=== PATIENT | female | born 1985 | race Caucasian/White ===

== ENCOUNTER 2024-12-02 15:44 | Outpatient (REF) | payer OTHER, SELFPAY ==
--- NOTE | ~2024-12-02 | MR_ITS ---
CLINICAL HISTORY: vertigo MR Brain without gadolinium Comparison: None Findings: No restricted diffusion. No intra-axial mass or hemorrhage. No midline shift. No hydrocephalus. Vascular flow voids are intact. Orbital contents are unremarkable. The sinuses and mastoid air cells are clear. No focal bone lesion. IMPRESSION: Unremarkable brain MRI. This document has been electronically signed by: Yonis Wong MD on 12/04/2024 10:20:04
--- OUTSIDE RECORDS SUMMARY | 2024-12-02 15:47 | XMS_ITS | Patient Health Record ---
Author Organization [facility] rocío Address [address] [place] [address] Care Team Providers Care Parking Supervisor Name Role Phone Reva Avila Primary Care Provider Guille Logan Unavailable [phone] Yakelin Barr Unavailable [phone] Wyatt Singh Unavailable [phone] Rajiv Mcfadden Unavailable Manuela Funez Unavailable Hakan Wilhelm Unavailable [phone] Binta, Provider Unavailable Unavailab Emil Fernández Unavailable [phone] Allergies Allergen (clinical drug ingredient) Drug/Non Drug Allergy documented on EMR Reaction Allergy Type Onset Date Status sulfamethoxazole / trimethoprim Bactrim rash Drug Allergy Active minocycline Minocycline rash Drug Allergy Act mireya azithromycin Zithromax rash Drug Allergy Acti ve Suprax rash Drug Allergy Active rizatriptan Maxalt made her feel high as a kite Drug Allergy Active nitrofurantoin Macrodantin profuse vommiting Drug Allergy Active erythromycin Erythromycin rash Drug Allergy A ctive cephalexin Cephalexin rash Drug Allergy Activ e Results Component Value Reference Range Notes Urine Dip --in house Reviewed date:02/20/2024 11:05:41 AM Interpretation: Performing Lab: Notes/Report: Glucose - Bili 1+ Ketone +/- Sp. Gr. 1.025 Blood +/- pH 6.0 Protein 1+ Urobili +/- Nitrite + Leuk 1+ Color/Clarity rené/clear URINE CULTURE (395 [address]) Reviewed date:02/23/2024 07:55:14 AM Interpretation: Performing Lab:NL2, [employer] [facility] [address] [place], [place] [id number] Maurice Mai Notes/Report: Received Date: NON-FASTING CULTURE, URINE, ROUTINE SEE NOTE CULTURE, URINE, ROUTINE Micro Number: [id number] Test Status: Final Specimen Source: Not given Specimen Quality: Adequate Result: Greater than 100,000 CFU/mL of Escherichia coli E.coli INT BRANDON AMOX/CLAVULANATE S 4 AMPICILLIN R >=32 AMP/SULBACTAM I 16 CEFAZOLIN NR <=4 2 CEFEPIME S <=1 CEFTAZIDIME S <=1 CEFTRIAXONE S <=1 CIPROFLOXACIN S <=0.25 GENTAMICIN S <=1 IMIPENEM S <=0.25 LEVOFLOXACIN S <=0.12 NITROFURANTOIN S <=16 PIP/TAZOBACTAM S <=4 TOBRAMYCIN S <=1 TRIMETHOPRIM/SULFA S <=20 S=Susceptible I=Intermediate R=Resistant * = Not Tested NR = Not Reported NN = See Therapy Comments THERAPY COMMENTS Note 1: For infections other than uncomplicated UTI caused by E. coli, K. pneumoniae or P. mirabilis: Cefazolin is resistant if BRANDON > or = 8 mcg/mL. (Distinguishing susceptible versus intermediate for isolates with BRANDON < or = 4 mcg/mL requires additional testing.) Note 2: For uncomplicated UTI caused by E. coli, K. pneumoniae or P. mirabilis: Cefazolin is susceptible if BRANDON <32 mcg/mL and predicts susceptible to the oral agents cefaclor, cefdinir, cefpodoxime, cefprozil, cefuroxime, cephalexin and loracarbef. Urine Dip --in house Reviewed date:03/02/2024 05:26:10 PM Interpretation: Performing Lab: Notes/Report: Glucose - Bili - Ketone 2+ Sp. Gr. 1.025 Blood - pH 6.0 Protein +- Urobili - Nitrite - Leuk - Color/Clarity clear/yellow Rapid Covid 19 Reviewed date:04/09/2024 08:58:19 AM Interpretation:Positive Performing Lab: Notes/Report: Positive ekg (Not yet reviewed by pro vider) Interpretation: Performing Lab: Notes/Report: Heart Rate 97 Systolic Blood Pressure 130 Diastolic Blood Pressure 110 NM Interval 130 QT Interval 362 QTc Interval 426 QRS Duration 96 PWave Roxbury 48 QrsWave Roxbury 26 TWave Roxbury 30 Mean Heart Rate 0 Diastolic Blood Pressure 0 Systolic Blood Pressure 0 MeanRR Interval 0 MinRR Interval 0 MaxRR Interval 0 NumBeats 0 TSH with reflex Reviewed date:04/23/2024 12:46:29 PM Interpretation: Performing Lab: Notes/Report: TSH 1.16 0.27-4.20 uIU/mL COMP MET PANEL Reviewed date:04/23/2024 12:46:07 PM Interpretation: Performing Lab: Notes/Report: SODIUM 137 133-146 mmol/L POTASSIUM 3.9 3.3-5.1 mmol/L CHLORIDE 100 96-108 mmol/L CO2 27 21-35 mmol/L BUN 13 6-19 mg/dL CREATININE 0.80 0.5-1.5 mg/dL GLUCOSE 76 70-99 mg/dL ALBUMIN 4.3 3.9-4.8 g/dL TOTAL PROTEIN 7.7 6.5-8.0 g/dL CALCIUM 9.8 8.4-10.3 mg/dL ALKALINE PHOSPHATASE 117 39-117 U/L TOTAL BILIRUBIN 0.3 0.0-1.2 mg/dL AST 18 0-37 U/L ALT 19 0-40 U/L EGFR 97 >59 mL/min/1.73m2 Estimated glomerular filtration rate calculated using the CKD-EPI refit equation. ANION GAP 14 10-20 mmol/L GLOBULIN 3.4 1-4.8 g/dL Sedimentation rate (ESR) Reviewed date:04/23/2024 12:46:36 PM Interpretation: Performing Lab: Notes/Report: ESR 47 0-20 mm/h CRP Reviewed date:04/23/2024 12:46:27 PM Interpretation: Performing Lab: Notes/Report: C REACTIVE PROTEIN 32.5 0.0-4.0 mg/L CBC AND DIFFERENTIAL Reviewed date:04/23/2024 12:46:23 PM Interpretation: Performing Lab: Notes/Report: WBC 17.12 4.00-11.00 K/uL RBC 5.54 4.00-5.20 M/uL HGB 15.0 12.0-16.0 g/dL HCT 46.8 36.0-46.0 % PLT 386 150-450 K/uL MCV 84.5 80.0-100.0 fL MCH 27.1 27.0-31.0 pg MCHC 32.1 32.0-36.0 g/dL RDW 14.4 11.5-14.5 % MPV 11.0 8.4-12.0 fl NRBC 0.00 0.00 /100 WBCs ABSOLUTE NRBC 0.00 0.00 K/uL DIFF METHOD Auto NEUTS 77.1 48.0-76.0 % LYMPHS 12.8 18.0-41.0 % MONOS 7.3 4.0-11.0 % EOS 1.2 0.0-5.0 % BASOS 1.1 0.0-1.5 % GRANULOCYTES, IMMATURE (%) 0.5 0.0-0.9 % ABSOLUTE NEUTS 13.20 1.92-7.60 K/uL ABSOLUTE LYMPHS 2.19 0.72-4.10 K/uL ABSOLUTE MONOS 1.25 0.16-1.10 K/uL ABSOLUTE EOS 0.21 0.00-0.50 K/uL ABSOLUTE BASOS 0.18 0.00-0.15 K/uL GRANULOCYTES, IMMATURE 0.09 0.00-0.09 K/uL COMP MET PANEL Reviewed date:04/29/2024 02:39:42 PM Interpretation: Performing Lab: Notes/Report: SODIUM 137 133-146 mmol/L POTASSIUM 3.2 3.3-5.1 mmol/L CHLORIDE 94 96-108 mmol/L CO2 31 21-35 mmol/L BUN 14 6-19 mg/dL CREATININE 0.70 0.5-1.5 mg/dL GLUCOSE 98 70-99 mg/dL ALBUMIN 4.3 3.9-4.8 g/dL TOTAL PROTEIN 7.7 6.5-8.0 g/dL CALCIUM 9.9 8.4-10.3 mg/dL ALKALINE PHOSPHATASE 120 39-117 U/L TOTAL BILIRUBIN 0.3 0.0-1.2 mg/dL AST 21 0-37 U/L ALT 21 0-40 U/L EGFR 114 >59 mL/min/1.73m2 Estimated glomerular filtration rate calculated using the CKD-EPI refit equation. ANION GAP 15 10-20 mmol/L GLOBULIN 3.4 1-4.8 g/dL Sedimentation rate (ESR) Reviewed date:04/29/2024 02:39:24 PM Interpretation: Performing Lab: Notes/Report: ESR 31 0-20 mm/h CRP Reviewed date:04/29/2024 02:39:20 PM Interpretation: Performing Lab: Notes/Report: C REACTIVE PROTEIN 31.5 0.0-4.0 mg/L CBC AND DIFFERENTIAL Reviewed date:04/29/2024 02:40:02 PM Interpretation: Performing Lab: Notes/Report: WBC 18.95 4.00-11.00 K/uL RBC 5.68 4.00-5.20 M/uL HGB 15.5 12.0-16.0 g/dL HCT 46.5 36.0-46.0 % PLT 373 150-450 K/uL MCV 81.9 80.0-100.0 fL MCH 27.3 27.0-31.0 pg MCHC 33.3 32.0-36.0 g/dL RDW 13.8 11.5-14.5 % MPV 11.0 8.4-12.0 fl NRBC 0.00 0.00 /100 WBCs ABSOLUTE NRBC 0.00 0.00 K/uL DIFF METHOD Auto NEUTS 78.1 48.0-76.0 % LYMPHS 13.7 18.0-41.0 % MONOS 5.8 4.0-11.0 % EOS 0.9 0.0-5.0 % BASOS 0.9 0.0-1.5 % GRANULOCYTES, IMMATURE (%) 0.6 0.0-0.9 % ABSOLUTE NEUTS 14.80 1.92-7.60 K/uL ABSOLUTE LYMPHS 2.59 0.72-4.10 K/uL ABSOLUTE MONOS 1.10 0.16-1.10 K/uL ABSOLUTE EOS 0.17 0.00-0.50 K/uL ABSOLUTE BASOS 0.18 0.00-0.15 K/uL GRANULOCYTES, IMMATURE 0.11 0.00-0.09 K/uL ekg Reviewed date:04/30/2024 12:30:39 AM Interpretation: Performing Lab: Notes/Report: Heart Rate 112 Systolic Blood Pressure 0 Diastolic Blood Pressure 0 NM Interval 130 QT Interval 328 QTc Interval 419 QRS Duration 94 PWave Roxbury 51 QrsWave Rox[place] 35 TWave Rox[place] 35 Mean Heart Rate 0 Diastolic Blood Pressure 0 Systolic Blood Pressure 0 MeanRR Interval 0 MinRR Interval 0 MaxRR Interval 0 NumBeats 0 Estradiol Reviewed date:06/24/2024 11:20:21 AM Interpretation: Performing Lab: Notes/Report: ESTRADIOL 53 FEMALE: Follicular: Less than 12 to 233 pg/ml Midcycle: 41 - 398 pg/ml Luteal: 22 - 341 pg/ml Postmenopausal: less than 5 - 138 pg/ml COMP MET PANEL Reviewed date:06/24/2024 11:20:07 AM Interpretation: Performing Lab: Notes/Report: SODIUM 139 133-146 mmol/L POTASSIUM 3.9 3.3-5.1 mmol/L CHLORIDE 102 96-108 mmol/L CO2 25 21-35 mmol/L BUN 13 6-19 mg/dL CREATININE 0.80 0.5-1.5 mg/dL GLUCOSE 90 70-99 mg/dL ALBUMIN 4.1 3.9-4.8 g/dL TOTAL PROTEIN 7.0 6.5-8.0 g/dL CALCIUM 9.5 8.4-10.3 mg/dL ALKALINE PHOSPHATASE 108 39-117 U/L TOTAL BILIRUBIN 0.5 0.0-1.2 mg/dL AST 16 0-37 U/L ALT 16 0-40 U/L EGFR 97 >59 mL/min/1.73m2 Estimated glomerular filtration rate calculated using the CKD-EPI refit equation. ANION GAP 16 10-20 mmol/L GLOBULIN 2.9 1-4.8 g/dL Hemoglobin A1c Reviewed date:06/24/2024 11:20:15 AM Interpretation: Performing Lab: Notes/Report: HEMOGLOBIN A1C 5.8 4.3-5.8 % CRP Reviewed date:06/25/2024 01:54:34 PM Interpretation: Performing Lab: Notes/Report: C REACTIVE PROTEIN 35.6 0.0-4.0 mg/L Progesterone Reviewed date:06/24/2024 11:20:29 AM Interpretation: Performing Lab: Notes/Report: PROGESTERONE 0.31 FEMALE: Follicular: 0.057 - 0.893 ng/ml Luteal: 1.83 - 23.9 ng/ml Rapid Covid 19 Reviewed date:06/21/2024 04:24:38 PM Interpretation:Negative Performing Lab: Notes/Report: Negative NuSwab Vaginitis Plus (VG+)- 919891 (SCOTT) Reviewed date:08/19/2024 01:43:18 PM Interpretation: Performing Lab:[facility] [place], [address] [facility], [place], Phone - [phone], Director - [facility] Notes/Report: Clinical Information:SRC: URINE Megasphaera 1 was developed and its performance characteristics determined by [employer]. It has not been cleared or approved by the Food and Drug Administration. Test(s) 677560-Frgeenw albicans, PIETRO; 228743-Fijlvbt glabrata, PIETRO was developed and its performance characteristics determined by [employer]. It has not been cleared or approved by the Food and Drug Administration. Atopobium vaginae High - 2 BVAB 2 High - 2 Megasphaera 1 High - 2 Calculate total score by adding the 3 individual bacterial vaginosis (BV) marker scores together. Total score is interpreted as follows: Total score 0-1: Indicates the absence of BV. Total score 2: Indeterminate for BV. Additional clinical data should be evaluated to establish a diagnosis. Total score 3-6: Indicates the presence of BV. Selena albicans, PIETRO Negative Negative Selena glabrata, PIETRO Negative Negative Trich vag by PIETRO Negative Negative Chlamydia trachomatis, PIETRO Negative Negative Neisseria gonorrhoeae, PIETRO Negative Negative rapid Flu Reviewed date:10/04/2024 03:34:26 PM Interpretation:Negative Performing Lab: Notes/Report: Negative COVID-19, Flu A+B and RSV-14 0140 (SCOTT) Reviewed date:10/06/2024 08:45:51 AM Interpretation: Performing Lab:Lab[facility], [address] [facility], Phone - [phone], Director - [facility] Notes/Report: Test(s) 724260-Aeduqujqf A, PIETRO; 999799-Vlaxepjae B, PIETRO; 008913- RSV, PIETRO was developed and its performance characteristics determined by [email or web address]. It has not been cleared or approved by the Food and Drug Administration. SARS-CoV-2, PIETRO Not Detected Not Detected Influenza A, PIETRO Not Detected Not Detected Influenza B, PIETRO Not Detected Not Detected RSV, PIETRO Not Detected Not Detected Test Information: This nucleic acid amplification test was developed and its performance characteristics determined by [employer]. Nucleic acid amplification tests include RT-PCR and TMA. This test has not been FDA cleared or approved. This test has been authorized by FDA under an Emergency Use Authorization (EUA). This test is only authorized for the duration of time the declaration that circumstances exist justifying the authorization of the emergency use of in vitro diagnostic tests for detection of SARS-CoV-2 virus and/or diagnosis of COVID-19 infection under section 564(b)(1) of the Act, 21 U.S.C. 360bbb-3(b) (1), unless the authorization is terminated or revoked sooner. When diagnostic testing is negative, the possibility of a false negative result should be considered in the context of a patient's recent exposures and the presence of clinical signs and symptoms consistent with COVID-19. An individual without symptoms of COVID-19 and who is not shedding SARS-CoV-2 virus would expect to have a negative (not detected) result in this assay. COMP MET PANEL Reviewed date:05/06/2024 10:09:21 AM Interpretation: Performing Lab: Notes/Report: SODIUM 139 133-146 mmol/L POTASSIUM 3.5 3.3-5.1 mmol/L CHLORIDE 95 96-108 mmol/L CO2 31 21-35 mmol/L BUN 11 6-19 mg/dL CREATININE 0.80 0.5-1.5 mg/dL GLUCOSE 93 70-99 mg/dL ALBUMIN 4.1 3.9-4.8 g/dL TOTAL PROTEIN 7.5 6.5-8.0 g/dL CALCIUM 9.9 8.4-10.3 mg/dL ALKALINE PHOSPHATASE 113 39-117 U/L TOTAL BILIRUBIN 0.4 0.0-1.2 mg/dL AST 21 0-37 U/L ALT 21 0-40 U/L EGFR 97 >59 mL/min/1.73m2 Estimated glomerular filtration rate calculated using the CKD-EPI refit equation. ANION GAP 17 10-20 mmol/L GLOBULIN 3.4 1-4.8 g/dL CBC AND DIFFERENTIAL Reviewed date:05/06/2024 10:09:09 AM Interpretation: Performing Lab: Notes/Report: WBC 16.17 4.00-11.00 K/uL RBC 5.66 4.00-5.20 M/uL HGB 15.1 12.0-16.0 g/dL HCT 47.8 36.0-46.0 % PLT 365 150-450 K/uL MCV 84.5 80.0-100.0 fL MCH 26.7 27.0-31.0 pg MCHC 31.6 32.0-36.0 g/dL RDW 14.3 11.5-14.5 % MPV 11.1 8.4-12.0 fl NRBC 0.00 0.00 /100 WBCs ABSOLUTE NRBC 0.00 0.00 K/uL DIFF METHOD Auto NEUTS 76.9 48.0-76.0 % LYMPHS 15.0 18.0-41.0 % MONOS 5.8 4.0-11.0 % EOS 1.1 0.0-5.0 % BASOS 0.7 0.0-1.5 % GRANULOCYTES, IMMATURE (%) 0.5 0.0-0.9 % ABSOLUTE NEUTS 12.44 1.92-7.60 K/uL ABSOLUTE LYMPHS 2.43 0.72-4.10 K/uL ABSOLUTE MONOS 0.93 0.16-1.10 K/uL ABSOLUTE EOS 0.17 0.00-0.50 K/uL ABSOLUTE BASOS 0.12 0.00-0.15 K/uL GRANULOCYTES, IMMATURE 0.08 0.00-0.09 K/uL Amylase Reviewed date:05/14/2024 09:42:30 PM Interpretation: Performing Lab: Notes/Report: AMYLASE 37 28-100 U/L CRP Reviewed date:05/19/2024 08:54:43 AM Interpretation: Performing Lab: Notes/Report: C REACTIVE PROTEIN 10.2 0.0-4.0 mg/L Lipase Reviewed date:05/14/2024 09:42:23 PM Interpretation: Performing Lab: Notes/Report: LIPASE 19 16-63 U/L STREPTOCOCCUS, GROUP A CULTU RE Reviewed date:04/12/2024 08:19:06 AM Interpretation: Performing Lab: Notes/Report: SPECIAL REQUESTS None GROUP A STREP CULTURE NEGATIVE FOR GRP A BETA STREPTOCOCCI US KIDNEYS Reviewed date:05/07/2024 10:46:07 AM Interpretation: Performing Lab: Notes/Report: Procedure: US KIDNEYS 05/04/2024 3:50 PM US Indications: Outside Radiology Order; Hypertension, primary; HTN. Comparison: CT abdomen/pelvis dated March 22, 2023. MRI abdomen dated September 08, 2021. Technique: Serial longitudinal and transverse real-time patel scale images through the retroperitoneum and pelvis were acquired utilizing a curved array transducer. Color Doppler images were used to assess vascularity. FINDINGS: Kidneys: The right kidney is normal in shape and position. The cortical thickness is normal and there is normal echogenicity. The right kidney measures 12.0 cm in length. There is no evidence of hydronephrosis, shadowing calcifications, solid/cystic masses or perinephric collections. The left kidney is normal in shape and position. The cortical thickness is normal and there is normal echogenicity. The left kidney measures 12.0 cm in length. There is no evidence of hydronephrosis, shadowing calcifications, solid/cystic masses or perinephric collections. Bladder: Examination of the bladder is decompressed and not adequately visualized. No gross intraluminal filling defects are identified. Neither ureteral jet is identified. No urinary bladder volume assessment was performed. IMPRESSION: Normal assessment of the kidneys. Decompressed bladder. Interpreted by: Octavio Pal MD Signed by: Octavio Pal MD 05/04/24 Final result PS: HTN Exam limited by body habitus Right renal: appears wnl Left renal: appears wnl Bladder: difficult to clearly visualize, patient voided just prior to imaging. Procedure: US KIDNEY S 05/04/2024 3:50 PM US Indications: Outs gill Radiology Order; Hypertension, primary; HTN. Comparison: CT abdomen/pelvis dated March 22, 2023. MRI abdomen dated September 08, 2021. Technique: Serial longitudinal and transverse real-time patel scale images through the retroperitoneum and pelvis were acquired utilizing a curved array transducer. Color Doppler images were used to assess vascularity. FINDINGS: Kidneys: The right kidney is normal in shape and position. The cortical thickness is normal and there is normal echogenicity. The right kidney measures 12.0 cm in length. There is no evidence of hydronephrosis, shadowing calcifications, solid/cystic masses or perinephric collections. The left kidney is normal in shape and position. The cortical thickness is normal and there is normal echogenicity. The left kidney measures 12.0 cm in length. There is no evidence of hydronephrosis, shadowing calcifications, solid/cystic masses or perinephric collections. Bladder: Examination of the bladder is decompressed and not adequately visualized. No gross intraluminal filling defects are identified. Neither ureteral jet is identified. No urinary bladder volume assessment was performed. IMPRESSION: Normal assessment of the kidneys. Decompressed bladder. Electronically Chani d by: Dr. Octvaio Pal on 05/04/2024 4:52 PM Interpreted by: Octavio Pal MD Signed by: Octavio Pal MD 05/04/24 Final result PS: HTN Exam limited by body habitus Right renal: appears wnl Left renal: appears wnl Bladder: difficult t o clearly visualize, patient voided just prior to imaging. C-reactive protein, high sen sitivity Reviewed date:05/06/2024 10:08:50 AM Interpretation: Performing Lab: Notes/Report: CRP, HIGH SENSITIVITY 47.4 0.0-5.0 mg/L Interpretation: hsCRP level (mg/L) Relative Risk <1.0 Low 1.0 - 3.0 Average >3.0 High Neonates (0-3 weeks): 0.1 - 4.1 mg/L Children (2 months - 15 years): 0.1 - 2.8 mg/L TICK-BORNE DNA PANEL, B Reviewed date:05/19/2024 08:54:27 AM Interpretation: Performing Lab: Notes/Report: B.MICROTI PCR Negative Negative B.DUNCANI PCR Negative Negative B.DIVERGENS/MO-1 PCR Negative Negative (NOTE) AD DITIONAL INFORMATION --------- This test was developed and its performance characteristics determined by [facility] in a manner consistent with CLIA requirements. This test has not been cleared or approved by the U.S. Food and Drug Administration. ANAPLASMA PHAGOCYTO Negative Negative EHRLICHIA CHAFFEENS Negative Negative EHRL EWINGII/CANIS Negative Negative EHRL MURIS-LIKE Negative Negative (NOTE) AD DITIONAL INFORMATION --------- This test was developed and its performance characteristics determined by [facility] in a manner consistent with CLIA requirements. This test has not been cleared or approved by the U.S. Food and Drug Administration. B. MIYAMOTOI PCR Negative Negative (NOTE) AD DITIONAL INFORMATION --------- This test was developed and its performance characteristics determined by [facility] in a manner consistent with CLIA requirements. This test has not been cleared or approved by the U.S. Food and Drug Administration. TSH with reflex Reviewed date:06/24/2024 11:19:58 AM Interpretation: Performing Lab: Notes/Report: TSH 1.38 0.27-4.20 uIU/mL CT CHEST WITHOUT CONTRAST Reviewed date:10/04/2024 11:59:48 AM Interpretation: Performing Lab: Notes/Report: CT CHEST WITHOUT CONTRAST Referring clinician's provided indication for this examination in [facility]: Outside Radiology Order; cough TECHNIQUE: Multidetector CT of the chest was performed without intravenous contrast using tailored dose modulation. COMPARISON: None available. FINDINGS: Devices/Tubes/Lines: None. Lungs: There are scattered small ill-defined groundglass opacities in the right upper lobe and bilateral lower lobe, for in the right upper lobe (4:105) and in the peribronchial left lower lobe (4:174). Patent central airways. Pleura: No pleural effusion or pneumothorax. Mediastinum: No pericardial effusion. No coronary artery calcification. Mild circumferential wall thickening of the lower esophagus. Lymph Nodes: No enlarged supraclavicular, axillary, or mediastinal lymph nodes by CT size criteria. Upper Abdomen: No abnormality detected in the visualized upper abdomen. Absence of intravenous contrast limits sensitivity for detecting solid organ findings. Chest Wall: No suspicious chest wall mass. Bones: No destructive osseous lesions. Degenerative changes in the imaged spine. IMPRESSION: 1. Multifocal small ill-defined groundglass opacities in the right upper and bilateral lower lobes, likely infectious/inflammatory etiology including aspiration. 2. Mild circumferential wall thickening of the lower esophagus, may be inflammatory such as due to esophagitis/reflux. Interpreted by: Fabiola Chopra MD Signed by: Fabiola Chopra MD 10/04/24 Final result Ps wheezing and cough for 3 months Restrictive pattern on spirometry CT CHEST WITHOUT CONTRAST Referring clinician' s provided indication for this examination in Epic: Outside Radiology Order; cough TECHNIQUE: Multidetector CT of the chest was performed without intravenous contrast using tailored dose modulation. COMPARISON: None available. FINDINGS: Devices/Tubes/Lines: None. Lungs: There are scattered small ill-defined groundglass opacities in the right upper lobe and bilateral lower lobe, for in the right upper lobe (4:105) and in the peribronchial left lower lobe (4:174). Patent cent ral airways. Pleura: No pleural effusion or pneumothorax. Mediastinum: No pericardial effusion. No coronary artery calcification. Mild circumferential wall thickening of the lower esophagus. Lymph Nodes: No enlarged supraclavicular, axillary, or mediastinal lymph nodes by CT size criteria. Upper Abdomen: No abnormality detected in the visualized upper abdomen. Absence of intravenous contrast limits sensitivity for detecting solid organ findings. Chest Wall: No suspicious chest wall mass. Bones: No destructiv e osseous lesions. Degenerative changes in the imaged spine. IMPRESSION: 1. Multifocal small ill-defined groundglass opacities in the right upper and bilateral lower lobes, likely infectious/inflammatory etiology including aspiration. 2. Mild circumferent ial wall thickening of the lower esophagus, may be inflammatory such as due to esophagitis/reflux. Electronically Chani d by: Fabiola Chopra on 10/04/2024 10:02 AM Interpreted by: Fabiola Chopra MD Signed by: Fabiola Chopra MD 10/04/24 Final result Ps wheezing and coug h for 3 months Antinuclear antibody Reviewed date:10/07/2024 08:22:32 AM Interpretation: Performing Lab: Notes/Report: HERNAN SCREEN ON HEP 2 Positive Negative An HERNAN T iter has been reflexed. The results will follow. Complement C3 Reviewed date:10/06/2024 01:44:28 PM Interpretation: Performing Lab: Notes/Report: C3 199 81-157 mg/dl Complement C4, S Reviewed date:10/06/2024 01:44:12 PM Interpretation: Performing Lab: Notes/Report: C4 18 12-39 mg/dL Immunoglobulin E, total Reviewed date:10/08/2024 01:17:11 PM Interpretation: Performing Lab: Notes/Report: IGE 3.3 <= 214 kU/L HERNAN TITER & PATTERN Reviewed date:10/06/2024 02:32:28 PM Interpretation: Performing Lab: Notes/Report: HERNAN TITER 1:80 Speckled COMP MET PANEL Reviewed date:10/06/2024 08:41:01 AM Interpretation: Performing Lab: Notes/Report: SODIUM 138 133-146 mmol/L POTASSIUM 4.3 3.3-5.1 mmol/L CHLORIDE 102 96-108 mmol/L CO2 25 21-35 mmol/L BUN 9 6-19 mg/dL CREATININE 0.60 0.5-1.5 mg/dL GLUCOSE 95 70-99 mg/dL ALBUMIN 4.0 3.9-4.8 g/dL TOTAL PROTEIN 7.4 6.5-8.0 g/dL CALCIUM 9.5 8.4-10.3 mg/dL ALKALINE PHOSPHATASE 109 39-117 U/L TOTAL BILIRUBIN <0.2 0.0-1.2 mg/dL AST 21 0-37 U/L ALT 17 0-40 U/L EGFR 118 >59 mL/min/1.73m2 Estimated glomerular filtration rate calculated using the CKD-EPI refit equation. ANION GAP 15 10-20 mmol/L GLOBULIN 3.4 1-4.8 g/dL UR TP,CRE WITH RATIO Reviewed date:10/06/2024 08:40:01 AM Interpretation: Performing Lab: Notes/Report: URINE TOTAL PROTEIN 7.0 URINE CREATININE 111 URINE TP CRE RATIO 0.06 0-0.19 ANTI-NEUTROPHIL CYTOPLASMIC ANTIBODY (ANCA) Reviewed date:10/07/2024 12:12:38 PM Interpretation: Performing Lab: Notes/Report: C-ANCA Negative Negative P-ANCA Negative Negative (NOTE) Negative for cANCA and pANCA patterns by immunofluorescence. AD DITIONAL INFORMATION --------- This test was developed and its performance characteristics determined by [facility] in a manner consistent with CLIA requirements. This test has not been cleared or approved by the U.S. Food and Drug Administration. 25-OH vitamin D Reviewed date:10/06/2024 08:40:20 AM Interpretation: Performing Lab: Notes/Report: 25 OH VIT D (TOTAL) 19 30-60 ng/mL Sedimentation rate (ESR) Reviewed date:10/06/2024 08:40:39 AM Interpretation: Performing Lab: Notes/Report: ESR 25 0-20 mm/h CPK (creatine kinase) Reviewed date:10/06/2024 08:40:53 AM Interpretation: Performing Lab: Notes/Report: CREATINE KINASE 36 21-215 U/L CRP Reviewed date:10/06/2024 08:40:46 AM Interpretation: Performing Lab: Notes/Report: C REACTIVE PROTEIN 22.2 0.0-4.0 mg/L Immunoglobulin A Reviewed date:10/06/2024 08:42:02 AM Interpretation: Performing Lab: Notes/Report: IGA 173 70-400 mg/dL Immunoglobulin G Reviewed date:10/06/2024 08:41:20 AM Interpretation: Performing Lab: Notes/Report: IMMUNOGLOBULIN G 456 609-2426 mg/dL Immunoglobulin M Reviewed date:10/06/2024 08:41:11 AM Interpretation: Performing Lab: Notes/Report: IMMUNOGLOBULIN M 192 40-230 mg/dL SS-A/SS-B antibodies Reviewed date:10/06/2024 01:44:17 PM Interpretation: Performing Lab: Notes/Report: ANTI-RO ANTIBODY 2.05 0.00-19.99 OD UNIT RO INTERPRETATION Negative Negative ANTI-LA ANTIBODY 2.60 0.00-19.99 OD UNIT LA INTERPRETATION Negative Negative CBC AND DIFFERENTIAL Reviewed date:10/06/2024 08:41:53 AM Interpretation: Performing Lab: Notes/Report: WBC 15.63 4.00-11.00 K/uL RBC 5.51 4.00-5.20 M/uL HGB 14.8 12.0-16.0 g/dL HCT 46.6 36.0-46.0 % PLT 388 150-450 K/uL MCV 84.6 80.0-100.0 fL MCH 26.9 27.0-31.0 pg MCHC 31.8 32.0-36.0 g/dL RDW 14.5 11.5-14.5 % MPV 10.8 8.4-12.0 fL NRBC 0.00 0.00 /100 WBCs ABSOLUTE NRBC 0.00 0.00 K/uL DIFF METHOD Auto NEUTS 79.3 48.0-76.0 % LYMPHS 12.2 18.0-41.0 % MONOS 4.8 4.0-11.0 % EOS 2.3 0.0-5.0 % BASOS 0.8 0.0-1.5 % GRANULOCYTES, IMMATURE (%) 0.6 0.0-0.9 % ABSOLUTE NEUTS 12.40 1.92-7.60 K/uL ABSOLUTE LYMPHS 1.90 0.72-4.10 K/uL ABSOLUTE MONOS 0.75 0.16-1.10 K/uL ABSOLUTE EOS 0.36 0.00-0.50 K/uL ABSOLUTE BASOS 0.12 0.00-0.15 K/uL GRANULOCYTES, IMMATURE 0.10 0.00-0.09 K/uL Reason For Referral Reason gastroporisis nutrit ion Diagnosis 1 Gastroparesis (K31.8 4) Referral Organization [facility] NO Referring Provider First Name Guille Referring Provider Last Name Desmond [facility]erred Provider Rafy Davenport Referred Provider Specialty Nutrionist General Notes Becca Wallace 04/07 08:40:10 AM > referral faxed to: [phone] Clinical Notes Provider Name: Jessica Davenport, Address1: [address] [place] [address], Zip: [place], [address], , Referral Priority Routine Reason persistent headaches Diagnosis 1 Headache, unspecifie d (R51.9) Referral Organization [facility] NO Referring Provider First Name Guille Referring Provider Last Name Desmond Referring Provider [facility] ctice Referred Provider Ana Jenkins Referred Provider Specialty Neurology General Notes Becca Wallace 05/07 10:24:07 AM > referral faxed to: [phone], Becca Wallace 09/29/2024 11:01:10 AM > refaxed referral to: [phone] Clinical Notes Provider Name: Ana Bosch, Provider , Address1: Mikhail Dietz, Address2: [address], Zip: [place], [address], , Referral Priority Routine Reason Reason joint pains, +HERNAN, rash , elevated CRP Diagnosis 1 Joint pains (M25.50) Diagnosis 2 Elevated C-reactive protein (CRP) (R79.82) Referral Organization [facility] Referring Provider First Name Guille Referring Provider Last Name Desmond Referring Provider Speciality [facility] ctice Referred Provider [facility],, Rheumatology Referred Provider Specialty Rheumatology General Notes Becca Wallace 05/07 09:20:19 AM > Referral faxed to: [phone] and submitted on [employer], Becca Wallace 07/06/2024 02:53:27 PM > refaxed as Urgent to: [phone] Clinical Notes Provider Name: [facility],, Rheumatology, Address1: [address] [facility], Zip: [place], [address], , Referral Priority Urgent Reason wheezing, cough, Diagnosis 1 Wheezing (R06.2) Referral Organization [facility] Referring Provider First Name Guille Referring Provider Last Name Desmond Ref[facility] Referred Provider Dian Patel Referred Provider Specialty Pulmonary Di seases General Notes Becca Wallace 09/05 09:55:28 AM > referral faxed to: [phone] Clinical Notes Provider Name: Michael Theodore, Provider ID Number: , Provider UPIN: , Provider , Provider Facility: , Provider Speciality: Pulmonary Diseases, Address1: [address] [place] [address], Address2: [facility], Zip: [place], [address], , Appt. Date/Time: , Referral Priority Routine Reason wheezing, groundglas s opactities on chest CT, and restictive pattern on spirometry Diagnosis 1 Other nonspecific ab normal finding of lung field (R91.8) Referral Organization [facility] Referring Provider First Name Guille Referring Provider Last Name Desmond Referring [facility] Referred Provider Dian Patel Referred Provider Specialty Pulmonary Di seases General Notes Becca Wallace 07/2024 07:06:09 AM > Urgent Referral faxed to: [phone] Clinical Notes Provider Name: Michael Theodore, Provider ID Number: , Provider UPIN: , Provider , Provider Facility: , Provider Speciality: Pulmonary Diseases, Address1: [address] [place] [address], Address2: [facility], Zip: [place], [address], , Appt. Date/Time: , Referral Priority Urgent Medications Medication SIG (Take, Route, Frequency, Duration) Notes Start Date End Date Status Ondansetron 4 MG 1 tablet on the tongue and allow to dissolve Orally as needed As needed Not-Taking Doxycycline Monohydrate 100 MG 1 tablet Orally twice a day for 7 days 10/04/2024 Active Fluticasone-Salmeterol 45-21 MCG/ACT 2 puffs Inhalation Twice a day for 30 days Active Nystatin 683570 UNIT/ML 4 mL Mouth/Throa t Four times a day for 14 days 10/04/2024 Active Fluconazole 150 MG 1 tab(s) orally once a day, may repeat in 24 hours if symptoms remain for 2 10/04/2024 Active Propranolol HCl 40 MG TAKE 1 TABLET BY M OUTH TWICE A DAY FOR 90 DAYS for 90 Not-Taking NexIUM 40 MG 1 cap(s) orally once a day for 90 days Active Methocarbamol 750 MG 1 tablet Orally three times a day for 5 days As needed 06/21/2024 Not-Taking Multi Vitamin - 1 tab(s) orally once a day for 30 day(s) Active Immunizations Vaccine Route Administration Date Status Comme nts Tdap Adacel,purchased IM Intramuscular 08/15/2006 Administered Gardasil, purchased IM Intramuscular 09/11/2006 Administered Gardasil, purchased IM Intramuscular 11/13/2006 Administered office purchase d vaccine Menomune vaccine history Unknown 04/27/2003 Administered Gardasil, purchased IM Intramuscular 11/11/2007 Administered purchased vacci ne Menactra, purchased IM Intramuscular 11/11/2007 Administered purchased vacci ne Varicella disease history Unknown 07/23/2004 Administered Td vaccine, state Unknown 07/07/1998 Administered MMR,state Unknown 07/07/1997 Administered IPV Vaccine, state Unknown 11/05/1991 Administered DT Vaccine; History Unknown 11/05/1991 Administered IPV Vaccine, state Unknown 10/05/1988 Administered DTap (Tripedia) state Unknown 10/05/1988 Administered HIB, STATE SUPPLIED Unknown 03/05/1988 Administered IPV Vaccine, state Unknown 01/05/1988 Administered MMR,state Unknown 12/29/1987 Administered DTap (Tripedia) state Unknown 07/07/1987 Administered IPV Vaccine, state Unknown 02/04/1987 Administered DTap (Tripedia) state Unknown 02/04/1987 Administered IPV Vaccine, state Unknown 1986 Administered DTap (Tripedia) state Unknown 1986 Administered Hepatitis B pedi (0-19yrs), state Unknown 03/07/1998 Administered Hepatitis B pedi (0-19yrs), state Unknown 11/04/1997 Administered Hepatitis B pedi (0-19yrs), state Unknown 10/05/1997 Administered TDAP history Unknown 03/04/2015 Administered FLUBLOK PURCHASED IM Intramuscular 05/26/2019 Administered COVID-19 Vaccine (SpaBoom), History Unknown 10/05/2020 Administered COVID-19 Vaccine (Pfizer), History Unknown 09/14/2020 Administered TDAP >7 PURCHASED (ADACEL) IM Intramuscular 01/01/2021 Administered Covid Vaccine Booster (SpaBoom), History Unknown 04/11/2021 Administered Flu Vaccine; History Unknown 04/10/2022 Administered Flu Vaccine; History Unknown 06/05/2023 Administered COVID VACC 12+ MODERNA Unknown 06/05/2023 Administered Problems Problem Type SNOMED Code ICD Code Onset Dates Problem Status W/U Status Risk Notes Problem Depression (733936663) Depression (F32.9) Active confirmed Problem Gastroesophageal reflux disease (333724817) GERD (K21.9) Active confirmed Problem Metrorrhagia (33362881) Metrorrhagia (N92.1) Active confirmed Problem Iron deficiency anemia (07878635) Iron deficiency anemia, unspecified (D50.9) Active confirmed Problem Dysuria (87864014) Dysuria (R30.0) Active confi rmed Problem Acute vaginitis (25828991) Vaginitis acute (N76.0) Active confirmed Problem Sleep disorder (78628169) Sleep disorder, unspecified (G47.9) Active confirmed Problem Family history of malignant neoplasm of gastrointestinal tract (733955372) Family history of malignant neoplasm of digestive organs (Z80.0) Active confirmed Problem Neck pain (17860470) Pain Neck (M54.2) Active confirmed Problem Leukocytosis (476490126) Leukocytosis (D72.829) Active confirmed Problem Vitamin D deficiency (41651991) Vitamin D deficiency, unspecified (E55.9) Active confirmed Problem Adjustment disorder with anxiety (20384297) Adjustment disorder with anxiety (F43.22) Active confirmed Problem Migraine (54419727) Migraine NOS (G43.809) Active confirmed Problem Menstrual status migrainosus (754031098639549) Menstrual migraine, not intractable, with status migrainosus (G43.821) Active confirmed Problem Sensorineural hearing loss (84881278) Hearing loss Unspecified (H90.5) Active confirmed Problem Allergic rhinitis due to pollen (89372178) Allergic rhinitis due to pollen (J30.1) Active confirmed Problem Morgan's esophagus (229435055) Morgan's esophagus without dysplasia (K22.70) Active confirmed Problem Gastroparesis (294345455) Gastroparesis (K31.84) Active confirmed Problem Atopic dermatitis (97348001) Atopic dermatitis, unspecified (L20.9) Active confirmed Problem Kidney stone (37663616) Kidney Stone (N20.0) Active confirmed Problem Irregular menstruation (42536336) Irregular menstruation, unspecified (N92.6) Active confirmed Problem High antibody titer (853394854) Raised antibody titer (R76.0) Active confirmed Problem C-reactive protein abnormal (033166545) Elevated C-reactive protein (CRP) (R79.82) Active confirmed Problem Body mass index 35.00 to 39.99 (770928479456157) BMI 39.0-39.9, adult (Z68.39) Active confirmed Problem Body mass index 40+ - morbidly obese (960954965) BMI 40.0-44.9, adult (Z68.41) Active confirmed Problem Family history of polyp of colon (973482162) Family history of colonic polyps (Z83.71) Active confirmed Problem Hysterectomy (421046294) Acquired absence of both cervix and uterus (Z90.710) Active confirmed Problem Hypertension (24622377) HTN (I10) Active confirmed Problem Candidiasis of mouth (68579462) Thrush, oral (B37.0) Active confirmed Problem Menorrhagia (250868769) Menorrhagia (N92.0) Active confirmed Problem Constipation (93371185) Constipation NOS (K59.00) Active confirmed Problem Premenstrual dysphoric disorder (110909) Premenstrual dysphoric disorder (F32.81) Active confirmed Problem Skin sensation disturbance (06284893) Paresthesias (R20.2) Active confirmed Problem 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, 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 Vital Signs Temperature 98.1 degrees Fahrenheit 10/04/2024 Oximetry 99 10/04/2024 Blood pressure diastolic 78 mm Hg 10/04/2024 Height 65.1 in 08/16/2024 Blood pressure systolic 136 mm Hg 10/04/2024 Weight 254.4 lbs 10/04/2024 BMI 41.3 kg/m2 08/16/2024 Procedures Procedure Date Ordered Date Performed Result Body Sit e Spirometry 09/17/2024 N/A Encounters Encounter Location Date Provider Diagnosis [place] [address] [place] [address] 12/28/2023 Provider [employer] Influenza B J10.89 [facility] [address] [place] [address] 02/20/2024 Hakan Wilhelm Dysuria R30.0 [place] [address] [place] [address] 03/02/2024 Reva Avila UTI N39.0 ; Vomiting unspecified R11.10 ; Gastroparesis K31.84 and Molluscum contagiosum B08.1 [place] [address] [place] [address] 04/09/2024 Manuela Funez Fever, unspecified R50.9 ; COVID-19 U07.1 and Sore throat J02.9 [place] [address] [place] [address] 04/21/2024 Rajiv Mcfadden Elevated blood-pressure reading, without diagnosis of hypertension R03.0 ; Post COVID-19 condition, unspecified U09.9 ; Headache, unspecified R51.9 and Gastroparesis K31.84 [place] [address] [place] [address] 04/23/2024 Careiliana OLMEDOPebrittnee Sinusitis, Acute unspecified J01.90 and HTN I10 [place] [address] [place] [address] 04/27/2024 Wyatt Jordanmohit Tachycardia, unspecified R00.0 ; Flushing R23.2 ; COVID-19 CONFIRMED DX U07.1 ; Sinusitis, Acute unspecified J01.90 ; HTN I10 ; Elevated C-reactive protein (CRP) R79.82 and Leukocytosis D72.829 [place] [address] [place] [address] 05/10/2024 Guille Logan Elevated C-reactive protein (CRP) R79.82 ; Headache, unspecified R51.9 ; Leukocytosis D72.829 and Cough, unspecified R05.9 [place] [address] [place] [address] 06/21/2024 Guille Logan Adult physical JESUS ALBERTO L Z00.00 ; Cough, unspecified R05.9 ; HTN I10 ; BMI 40.0-44.9, adult Z68.41 ; Fatigue R53.83 ; Pain Neck M54.2 and COVID-19 EXPOSURE Z20.[address] [facility] [address] [address] 07/29/2024 Guille Logan Wheezing R06.2 ; Vaginitis acute N76.0 and Atopic dermatitis, unspecified L20.[address] [facility] [address] [address] 08/03/2024 Hakan Corriveau Wheezing R06.2 and Cough, unspecified R05.9 [place] [address] [place] [address] 08/11/2024 Yakelin Lindont Depression F32.9 [place] [address] [place] [address] 08/16/2024 Guille Logan Wheezing R06.2 ; Acute sinusitis, unspecified J01.90 ; Cough, unspecified R05.9 ; Vaginitis acute N76.0 and Molluscum contagiosum B08.[address] [facility] [address] [address] 09/17/2024 Guille Logan Wheezing R06.2 and Cough, unspecified R05.9 [place] [address] [place] [address] 10/04/2024 Guille Logan Wheezing R06.2 ; Cough, unspecified R05.9 ; Pneumonia NOS J18.9 ; Thrush, oral B37.0 ; Other nonspecific abnormal finding of lung field R91.8 and Exposure to Influenza A Z20.828 [place] [address] [place] [address] 04/21/2024 Rajiv Mcfadden Elevated blood-pressure reading, without diagnosis of hypertension R03.0 [place] [address] [place] [address] 04/21/2024 Reva [place] [address] [place] [address] 04/21/2024 Reva [place] [address] [place] [address] 04/21/2024 Reva [place] [address] [place] [address] 04/22/2024 Rajiv Mcfadden [place] [address] [place] [address] 04/23/2024 Reva [place] [address] [place] [address] 04/23/2024 Manuela Funez [place] [address] [place] [address] 04/23/2024 Manulea Funez [place] [address] [place] [address] 04/27/2024 Reva [place] [address] [place] [address] 05/03/2024 Guille Logan Iron deficiency anemia, unspecified D50.9 and Elevated C-reactive protein (CRP) R79.82 [place] [address] [place] [address] 05/10/2024 Guille Logan Pain abd Generalized R10.84 and Headache, unspecified R51.9 [place] [address] [place] [address] 05/18/2024 Guille Logan [place] [address] [place] [address] 06/15/2024 Guille Logan [place] [address] [place] [address] 08/03/2024 Reva Avila [place] [address] [place] [address] 09/03/2024 Reva Avila [facility] [address] [place] [address] 09/17/2024 Guille Logan Cough, unspecified R05.9 ; Wheezing R06.2 and Other abnormalities of breathing R06.89 [place] [address] [place] [address] 09/22/2024 Guille Logan [place] [address] [place] [address] 10/07/2024 Guille Logan Cough, unspecified R05.9 [place] [address] [place] [address] 11/18/2024 Guille Logan Wheezing R06.2 [place] [address] [place] [address] 04/22/2024 Reva Avila COVID-19 U07.1 [place] [address] [place] [address] 05/17/2024 Guille Logan [place] [address] [place] [address] 05/20/2024 Guille Logan [place] [address] [place] [address] 06/25/2024 Guille Logan [place] [address] [place] [address] 06/26/2024 Guille Logan [place] [address] [place] [address] 06/28/2024 Guille Logan [facility] [address] [place] [address] 08/02/2024 Guille Logan [place] [address] [place] [address] 09/12/2024 Guille Logan [place] [address] [place] [address] 09/20/2024 Guille Logan [place] [address] [place] [address] 09/20/2024 Guille Logan [place] [address] [place] [address] 09/20/2024 Guille Logan Assessments Encounter Date Diagnosis (ICD Code) Assessment Notes Treatment Notes Treatment Clinical Notes Section Notes 12/28/2023 Influenza B (ICD-10 - J10.89) 02/20/2024 Dysuria (ICD-10 - R30.0) -Dysuria suspicious for UTI based on history and dipstick. Will send urine for culture. -Reviewed allergy hx, discussed abx options. Pt reports no issue last time she took amoxicillin, is okay with starting augmentin. Will start antibiotics as directed. Complete entire course of antibiotics even if symptoms improve prior to completion. Pt reports frequet yeast infections post abx, requests diflucan rx in case of sx. Will provide, discussed s/sx to start, dosing instructions. -Encouraged increased fluids, regular voiding. -Contact us if symptoms do not improve once antibiotics have been completed, sooner if symptoms worsen or fever/chills, back pain. Some ways to help reduce risk of urinary tract infections include staying well hydrated and peeing when you have to pee, wear cotton lined underwear, always urinate within 20-30 minutes of intercourse to clear the skin bacteria away from the entrance to the bladder, always wipe from front to back after using the toilet. 03/02/2024 UTI (ICD-10 - N39.0) 03/02/2024 Vomiting unspecified (ICD-10 - R11.10) 04/09/2024 Fever, unspecified (ICD-10 - R50.9) Monitor fever, TX with tylenol and motrin. FU if high fever unrelieved by ibuprofen and tylenol. 04/09/2024 COVID-19 (ICD-10 - U07.1) Reviewed patient risk factors and determined that patient warrant treatment with full dose PAXLOVID, RX sent. Drug interactions and GFR reviewed. GFR 119 Patient educated regarding meds including s/e, need to check Pulse ox 2x a day for 2 weeks and call if oxygen level stays below 93%. Start a daily regular strength aspirin for 2 weeks. Activate EMS is severe symptoms or shortness of breath or chest pain. 04/21/2024 Elevated blood-pressure reading, without diagnosis of hypertension (ICD-10 - R03.0) Plan: Blood Pressure Management: Initiate treatment with hydrochlorothiazide to manage elevated diastolic blood pressure.Schedule an urgent echocardiogram to assess for potential hypertrophic or inflammatory cardiomyopathy post-COVID.Advise the patient to monitor blood pressure regularly and avoid NSAIDs. Encourage hydration, especially while taking diuretics.Follow-Up: A follow-up appointment is scheduled for Friday to reassess blood pressure and review echocardiogram results.Arrange for the patient to be contacted to schedule the echocardiogram at [facility]. Dr. Hudson and MANAGER LINE both consulted in this complicated and concerning case. Pt. advised to go to ER if any cardiac symptoms arrise. EKG WNL COVID-19 Symptom Management: Continue managing symptoms with lzyv-svs-mnyaspj medications, ensuring adequate rest and hydration. Gastroparesis and Nutritional Support: Refer to a long filler cigar roller machine at [facility] in [place] for dietary management to improve gastroparesis symptoms. over 60m Overall time spent in patient care coordination, medical management, counseling and education of patient and family as well as interpreting test results and discussion with other experts involved in the patient's care. 04/21/2024 Post COVID-19 condition, unspecified (ICD-10 - U09.9) 04/23/2024 Sinusitis, Acute unspecified (ICD-10 - J01.90) Bacterial sinusitis is most likely cause of elevated white count vs viral infection but ++ Neutrophils point to bacterial etiology. Discussed in addition to AUGMENTIN, continue supportive care as well as NETIPOT. Proper use of antibiotics and side effects discussed and advised to complete the full course of antibiotics. Encouraged to take with food and probiotic.Will send diflucan to prevent yeast infection. FU if persisting or worsening sx. ED PRN red flag s/sx such as severe shortness of breath, inability to tolerate PO intake. Patient verbalizes understanding and agreement with this plan of care. Repeat BW before FU w CCR next week. 04/23/2024 HTN (ICD-10 - I10) BP controlled on HCTZ. We will continue to monitor BP. She did ECHO pending results. We will do US renal to r/o renal artery stenosis. See TE Continue to cehck BP at home and instructed to call office if home BP regularly > 140/90 or less than 100/60. Encouraged to call/report any symptoms such as increasing leg cramps, dizziness or lightheadedness, palpitations or chest pain or pressure. ED PRN red flag s/sx 04/27/2024 Tachycardia, unspecified (ICD-10 - R00.0) Destiny 38 yo F with several recent acute illnesses, here with sinus tachycardia noted this afternoon. She came here from work. EKG showed tachycardia without other abnormalities and last echo was reassuring. Tachycardia is likely related to fever or reactive response to ongoing infection, such as COVID recovery or acute sinusitis. She is often tachycardic in the office. She is hemodynamically stable on exam and feels at baseline or even slightly improved considering the recent illnesses 04/27/2024 Flushing (ICD-10 - R23.2) see above 05/10/2024 Elevated C-reactive protein (CRP) (ICD-10 - R79.82) elevated HSCRP and WBC unknown etiology, but it is longstanding and had presviously consulted rheum and oncology for this. Would often be high during acute illness , however with recent labs has increased. Referral back to rheumatology and given that she continues to not feel well and with ongoing cough trial prednisone burst. Discussed with colleagues 05/10/2024 Headache, unspecified (ICD-10 - R51.9) referral to [facility] neurolog[facility] as discussed. Patient with longstanding headache hx and recent increase to headaches following recent illness. Would not favor HCTZ as first line for her BP management, given the PRSS1 gene mutation as well then additional reason to consider alternative. She will hold the HCTZ, BP is actually improved today compared with prior visits and she didnt take the medication in past day. monitor her home BP and provide readings within a week and then reassess 06/21/2024 Adult physical NORMAL (ICD-10 - Z00.00) 06/21/2024 Cough, unspecified (ICD-10 - R05.9) occasional dry cough, lungs are clear, see below 07/29/2024 Wheezing (ICD-10 - R06.2) Reports periodic wheezing sensation. No trouble breathing. Lungs are clear on exam today, vitals stable. Respiration rate regular. No other assocaited symptom such as ongoing cold symptoms, congestion. Will trial albuterol inahler. Reviewed proper use and side effects. Call back if non improvement. If sudden trouble breathing seek emergent care 07/29/2024 Vaginitis acute (ICD-10 - N76.0) Reports mild irritation has been improving since last week. No pain, puruelnt discharge, or urinary symptoms. Vaginitis swab obtained today. will f/u pending diagnostics and discussed s/s to monitor for that would require sooner follow up 08/03/2024 Wheezing (ICD-10 - R06.2) -F/up wheeze. Was started on albuterol, pt notes sx still worsening. Lungs CTA today with occasional dry, tight cough. Likely viral vs allergy trigger. -Will start ICS as above. Discussed indications for use, proper administration and potential side effects of this medication. -F/up 1-2 wks for lung check and elise. If sudden trouble breathing seek emergent care. Pt verbalizes good understanding. 08/03/2024 Cough, unspecified (ICD-10 - R05.9) -Likely viral vs allergy etiology. Reviewed supportive care options. Will start ICS as above as well. 08/11/2024 Depression (ICD-10 - F32.9) Here for TMS intake and info. Barriers to eligiblity include no current or recent med trials. Can consider consult with psych provider to discuss next steps. or 08/16/2024 Wheezing (ICD-10 - R06.2) lungs remain clear on exam. no shortness of breath or trouble in breathing. feels the ICS helped. her main concern today is on sinus pain. Discussed is symptoms not resolved with ICS and augmentin need to follow up. 08/16/2024 Acute sinusitis, unspecified (ICD-10 - J01.90) -Bacterial sinusitis vs viral illness discussed. Given duration of sx, sinus tenderness and failed conservative TX, will treat with abx for presumed bacterial involvement. Discussed continue supportive care as well as consider use of NETIPOT. Proper use of antibiotics and side effects discussed and advised to complete the full course of antibiotics. Encouraged to take with food and probiotic.diflucan sent as precaution , take antibiotic with probiotc -FU if persisting or worsening sx. -Patient verbalizes understanding and agreement with this plan of care. 09/17/2024 Wheezing (ICD-10 - R06.2) lungs remain clear on exam. no wheezing noted but patient reports wheezing was prsent earlier in week. Feels the steroids almost immediately stop her respiratory symptoms. presently no shortness of breath or trouble in breathing.Has one more day of prednisone left on taper and after that transition back to ICS/LABA, refill sent. Spriometry today shows reduced FVC, suggestive of restirctive pattern. We will order chest CT and make pulmonlogy referral. Of note she also has joint pains, elevted CRP and is awaiting rheum consult at end of this month too. If sudden trouble breathing seek emergent care, close follow up in 2 weeks or sooner pending CT 09/17/2024 Cough, unspecified (ICD-10 - R05.9) see above 10/04/2024 Wheezing (ICD-10 - R06.2) reports much better with the ICS/LABA inhaler. See below re CT findings. Advised need career services officer consult, urgent referral placed to [facility] pulm. Patient instructed to call to schedule. 10/04/2024 Cough, unspecified (ICD-10 - R05.9) see above 04/21/2024 Elevated blood-pressure reading, without diagnosis of hypertension (ICD-10 - R03.0) 05/03/2024 Iron deficiency anemia, unspecified (ICD-10 - D50.9) 05/03/2024 Elevated C-reactive protein (CRP) (ICD-10 - R79.82) 05/10/2024 Pain abd Generalized (ICD-10 - R10.84) 05/10/2024 Headache, unspecified (ICD-10 - R51.9) 09/17/2024 Cough, unspecified (ICD-10 - R05.9) 09/17/2024 Wheezing (ICD-10 - R06.2) 10/07/2024 Cough, unspecified (ICD-10 - R05.9) 11/18/2024 Wheezing (ICD-10 - R06.2) 04/22/2024 COVID-19 (ICD-10 - U07.1) 03/02/2024 Gastroparesis (ICD-10 - K31.84) 04/09/2024 Sore throat (ICD-10 - J02.9) 04/21/2024 Headache, unspecified (ICD-10 - R51.9) 04/27/2024 COVID-19 CONFIRMED DX (ICD-10 - U07.1) She appears to be mostly recovered, Suggested supportive care including rest, warm herbal teas, local honey, cough lozenges, etc 05/10/2024 Leukocytosis (ICD-10 - D72.829) Lonstanding with prior hemeatology work up 06/21/2024 HTN (ICD-10 - I10) BPs have been fluctuating, overall better with propranolol but still need to monitor closely. No recent bleeding, abnromal echo or dehydration in terms of the one home reading with narrow pulse pressure. Pt will continue regular BP checks at home and plan for close follow up in coming week after labs are resulted 07/29/2024 Atopic dermatitis, unspecified (ICD-10 - L20.9) Suspect eczema flare. topical steroid sent, reviewed proper use of medicataion. after 1-2 weeks switch to emoillent daily such as eucerin 08/16/2024 Cough, unspecified (ICD-10 - R05.9) improving, see above 10/04/2024 Pneumonia NOS (ICD-10 - J18.9) DDx based on her CT report could include atpyical PNA. She recently had treatment with augmentin but not atypical coverage. Has azithromycin allergy, will use doxycycline. Confirmed w patient that prior reported minocycline allergy was small rash that was likely attributed to another abx at same time. She is aware of risks of rash/reaction and when to seek higher level of care. Recommend given symptoms and CT report cover for atypicals though ILD also on DDx as discussed 09/17/2024 Other abnormalities of breathing (ICD-10 - R06.89) 03/02/2024 Molluscum contagiosum (ICD-10 - B08.1) 04/21/2024 Gastroparesis (ICD-10 - K31.84) 04/27/2024 Sinusitis, Acute unspecified (ICD-10 - J01.90) Resolving. Advised to complete antibiotics as prescribed. 05/10/2024 Cough, unspecified (ICD-10 - R05.9) see above, prednisone burst sent 06/21/2024 BMI 40.0-44.9, adult (ICD-10 - Z68.41) discussed lifestlye 08/16/2024 Vaginitis acute (ICD-10 - N76.0) Prior swab not run by lab. Re-swabbed today to assess and will begin empiric treatment for presumed BV. F/u pending results. No other/new symptoms reported 10/04/2024 Thrush, oral (ICD-10 - B37.0) Mild thrush, continue to rinse mouth after inhaler use. Treat w nystatin, aware oral abx can make this harder to treat at same time. WIll treat x 14 days as reviewed 04/27/2024 HTN (ICD-10 - I10) Well controlled today 06/21/2024 Fatigue (ICD-10 - R53.83) Discussed mood - has been more down lately. contracts for safety., plan to review furter at f/u labs appointment 08/16/2024 Molluscum contagiosum (ICD-10 - B08.1) see proc note, total of 6 lesions cryo'd today 10/04/2024 Other nonspecific abnormal finding of lung field (ICD-10 - R91.8) Reviewed recent CT report and recent appt with rhuematology earlier today, rheumatology labs pending. Discussed potential for autoimmune related ILD as possibity given CT report 04/27/2024 Elevated C-reactive protein (CRP) (ICD-10 - R79.82) elevated HSCRP and WBC unknown etiology, but it is longstanding and had presviously consulted rheum and oncology for this. Would often be high during acute illness regardless 06/21/2024 Pain Neck (ICD-10 - M54.2) Neck pain worsened with rotation to R side and coughing. No sore throat, no trouble swallowing/fevers. Exam most c/w MSK in nature. Will trial heating pad, MSK relaxant and advised need to return if non improvement over course of week. If severe pain/stiffness, high fever, vomiting, severe headache or sore throat - need to seek emergent care 10/04/2024 Exposure to Influenza A (ICD-10 - Z20.828) flu swab negative, her daughter has flu. Use mask and precautions 04/27/2024 Leukocytosis (ICD-10 - D72.829) Also longstanding for her with prior workup 06/21/2024 COVID-19 EXPOSURE (ICD-10 - Z20.822) covid test negative in house today and negative at home yesterday for patient. Call back if new/worsening symptoms 04/27/2024 Other Medical decision-making was shared with the patient, and all questions were addressed. Please excuse any typos or grammatical errors. Contact our office for clarification if needed. We are the medical home for this patient. This visit is part of our ongoing, continuous relationship to manage and coordinate the patient's chronic and acute health conditions. which is essential for ensuring optimal health outcomes through comprehensive and coordinated multidisciplinary care. 06/21/2024 Other see below Plan Of Treatment Pending Test Test Name Order Date -LH, Leutinizing Hormone 02/10/2006 -H Pylori Antibody 02/15/2009 -HCG qualitative 02/10/2006 Urine Dip --in house 08/27/2006 Urine Dip --in house 09/11/2006 Urine Dip --in house 09/16/2006 Urine Dip --in house 07/05/2019 UCG 02/10/2006 Ultrasound : Breasts, bilateral 11/07/19 23 Echocardiogram 04/21/2024 Rapid Strep 04/09/2024 Rapid Strep 10/21/2006 ekg 04/21/2024 COMPLETE BLOOD COUNT 02/10/2006 COMPLETE BLOOD COUNT 02/15/2009 COMPLETE BLOOD COUNT 08/27/2006 -CHLAMYDIA GC AMP PROBE 04/19/2010 PFTs 10/07/2024 URINE CULTURE (395 NOHO) 01/06/2007 -MOUTH CULTURE 12/07/2021 -WET PREP 08/27/2006 Total IgA 01/20/2007 X ray : Hand, RIght 01/22/2023 PAP, cervical, & GC/Chlamydi a AMP DNA probe from [facility]; HPV Hybrid Capture High Risk DNA Probe ( 11/11/2008 CT Abdomen and Pelvis W/O Contrast 04/19 AMYLASE 02/15/2009 -LIPASE 02/15/2009 -LIPASE 08/27/2006 -TSH 02/10/2006 TSH WITH REFLEX TO FT4 06/21/2024 COMPREHENSIVE METABOLIC PANL -[id number] 02/04 FERRITIN 11/16/2021 RBC FOLATE 12/07/2021 RBC FOLATE 11/16/2021 VITAMIN B12 11/16/2021 HEMOGLOBIN A1C 11/16/2021 HEMOGLOBIN A1C 06/16/2023 COMPREHENSIVE METABOLIC PANL 03/17/2023 COMPREHENSIVE METABOLIC PANL 11/04/2022 COMPREHENSIVE METABOLIC PANL 06/16/2023 COMPREHENSIVE METABOLIC PANL 03/26/2023 TSH WITH REFLEX TO T4 03/17/2023 TSH WITH REFLEX TO T4 11/16/2021 FSH 03/17/2023 FSH 06/16/2023 LH 06/16/2023 LH 03/17/2023 CBC AUTO DIFF 12/07/2021 CBC AUTO DIFF 11/16/2021 CBC AUTO DIFF 03/26/2023 CBC AUTO DIFF 03/17/2023 CRP 03/26/2023 URINE CHLAMYDIA GC (use this one for STD urine screen) 04/12/2020 CT Chest W/O Contrast 09/17/2024 HIV AB-AG 4TH GENERATION (USE THIS ONE) 11/16/2021 Ultrasound : Renal 04/23/2024 CBC AND DIFFERENTIAL 11/27/2021 BI MAMMOGRAM DIAGNOSTIC (BILATERAL) 07/2022 XR FOOT (RIGHT) 12/17/2021 X ray : Thoracolumbar Spine 03/17/2023 COVID-19 (NOVEL CORONAVIRUS), PCR Driv e Through 03/31/2020 Covid-19 PCR (use this one) 06/04/2021 TSH WITH REFLEX TO FT4 06/16/2023 COVID-19, Flu A+B and [id number] ([facility]) 04/09/2024 Strep Gp A Detection, [id number] ([facility]) 04/09/2024 VAGINITIS, BV, TV, CT/NG Panel ([id number] NO HO) 07/29/2024 Tick Panel 05/10/2024 HSCRP 05/03/2024 Spirometry 09/17/2024 Next Appt Details Provider Name:Guille Prado Des[place], 1 03:45:00 PM, [address], [place], [id number], Insurance Providers Payer Name Payer Address Payer Phone Subscriber Number Group Number Insured Name Patient Relationship to Insured Coverage Start [place] [address] [id number] DESTINY ASHBY Self - patient is the insured Medical (General) History Medical History History ICD Code hx of exercise-induced Asthma as a child --does not currently need inhalers Migraines since age 8yrs--wi aura--[place] [facility]--Michelle Arias MD Morgan's 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 Aayush Acuña at [facility] Women's blood type O positive s/p R ovarian cyst rupture and removal-- [employer]--[facility] hx of pneumonia (Dr. Johnson) s/p nasal fracture 11/17/04 PCOS DEREK 05/01/09 (possibly H1N1) Syncopal episodes in early 20s PMDD menorrhagia dysmenorrhea iron deficeincy anemia HERNAN+ PRSS1 mutation - Dr Mack COVID October 2021 COVID 03/2022 kidney stone w stent placed ([facility]) gastroparesis Echo - EF 65% - apr 2024 Surgical History Surgery Date(Month/Year) Stent Placement (kidney stones)- [facility] 03/07 Colonoscopy- [facility] 02/2023 total hysterectomy and salpingectomy, on ly has ovaries 10/19/20 2 prior Lap R ovary cystecto my for hemorrhagic ruptured R ovarian Cyst--Dr. Duffy @ [facility] 08/02/07 Hospitalization History Reason Date(Month/Year) Kidney stones- [facility] ED 03/22/2023 hemorrhages from hysterectomy 11/06/20 pyelonephritis - [facility] 2013 child 2013 Deysi Ashutosh--above ovarian cyst OP 07/2007
== END 2024-12-02 15:45 | disposition home or self-care (01) ==
LOC: HO.MRI 15:44
PROVIDERS: Visit Provider Psychiatry & Neurology Neurology
DX: R42 Dizziness and giddiness (principal)
CPT/HCPCS: 70551

== ENCOUNTER → 2024-12-02 15:45 | Outpatient (BNV) | payer OTHER, SELFPAY | PROVIDERS: Visit Provider Specialist | DX: H81.4 Vertigo of central origin (principal) | CPT/HCPCS: 70551 ==